=== PATIENT | male | born 1985 | race African-American/Black ===

== ENCOUNTER 2024-05-22 02:38 | Inpatient (IN) | payer MEDICAID ==
[~2024-05-22] VITALS: Ht 182.9 cm; Wt 83.3 kg
[2024-05-22 00:17] VITALS: BP 118/75; PULSE 108; RESP 14; TEMP 98
[2024-05-22] MEDS ORDERED: LORazepam 2 MG TABLET PO PRN (03:00)
[2024-05-22] MEDS ORDERED: ZOLPIDEM TARTRATE 10 MG TABLET PO PRN (03:00)
[2024-05-22] MEDS ORDERED: HALOPERIDOL 5 MG TABLET PO PRN (03:00)
[2024-05-22 10:00] VITALS: BP 120/69; PULSE 66; RESP 16; TEMP 98.1
[2024-05-22] MEDS: NICOTINE 7 MG/24 HOUR PATCH TD SCH (14:30)
[2024-05-22] MEDS ORDERED: PETROLATUM,WHITE 28 GM JELLY TP PRN (16:00)
[2024-05-22] MEDS ORDERED: IBUPROFEN 400 MG TABLET PO PRN (16:00)
[2024-05-22] MEDS ORDERED: NICOTINE 14 MG/24 HOUR PATCH TD PRN (16:00)
[2024-05-22] MEDS ORDERED: MAGNESIUM HYDROXIDE SUSPENSION 30 ML UDCUP PO PRN (16:00)
[2024-05-22] MEDS ORDERED: GuaiFENesin/D-METHORPHAN [SUGAR-FREE] 200-20MG/10 ML SYRUP UDCUP PO PRN (16:00)
[2024-05-22] MEDS ORDERED: ONDANSETRON HCL 4 MG TABLET PO PRN (16:00)
[2024-05-22] MEDS ORDERED: DOCUSATE SODIUM 100 MG CAPSULE PO PRN (16:00)
[2024-05-22] MEDS ORDERED: LOPERAMIDE HCL 2 MG CAPSULE PO PRN (16:00)
[2024-05-22] MEDS ORDERED: MAG HYDROX/ALUMINUM HYD/SIMETH ES 30 ML SUSPENSION UDCUP PO PRN (16:00)
[2024-05-22] MEDS ORDERED: ACETAMINOPHEN 325 MG TABLET PO PRN (16:00)
[2024-05-22] MEDS ORDERED: CloNIDine HCL 0.1 MG TABLET PO PRN (16:00)
[2024-05-22] MEDS ORDERED: ALBUTEROL SULFATE HFA 90 MCG/PUFF 8 GM INHALER IH PRN (16:00)
[2024-05-22 20:28] VITALS: RESP 16
[2024-05-23 08:39] VITALS: BP 135/75; PULSE 67; RESP 17; TEMP 97.7; O2SAT 94
[2024-05-23 08:54] LABS: CHOL/HDL RATIO 3.3 (4.2-7.3); THYROID STIMULATING HORMONE 2.94 uIU/mL (0.36-3.74)
[2024-05-23] MEDS ORDERED: MAG HYDROX/ALUMINUM HYD/SIMETH ES 30 ML SUSPENSION UDCUP PO PRN (09:00)
[2024-05-23] MEDS ORDERED: ALBUTEROL SULFATE HFA 90 MCG/PUFF 8 GM INHALER IH PRN (09:00)
[2024-05-23] MEDS ORDERED: IBUPROFEN 400 MG TABLET PO PRN (09:00)
[2024-05-23] MEDS ORDERED: ACETAMINOPHEN 325 MG TABLET PO PRN (09:00)
[2024-05-23] MEDS ORDERED: LOPERAMIDE HCL 2 MG CAPSULE PO PRN (09:00)
[2024-05-23] MEDS ORDERED: MAGNESIUM HYDROXIDE SUSPENSION 30 ML UDCUP PO PRN (09:00)
[2024-05-23] MEDS ORDERED: CloNIDine HCL 0.1 MG TABLET PO PRN (09:00)
[2024-05-23] MEDS ORDERED: DOCUSATE SODIUM 100 MG CAPSULE PO PRN (09:00)
[2024-05-23] MEDS ORDERED: ONDANSETRON HCL 4 MG TABLET PO PRN (09:00)
[2024-05-23] MEDS ORDERED: PETROLATUM,WHITE 28 GM JELLY TP PRN (09:00)
[2024-05-23] MEDS ORDERED: GuaiFENesin/D-METHORPHAN [SUGAR-FREE] 200-20MG/10 ML SYRUP UDCUP PO PRN (09:00)
[2024-05-23 09:07] VITALS: BP 116/70; PULSE 77; O2SAT 97
[2024-05-23 10:05] VITALS: BP 108/75; PULSE 84; TEMP 97.7; O2SAT 98
[2024-05-23 10:53] LABS: HEMOGLOBIN A1C 5.5 % (3.8-5.6)
[2024-05-23] MEDS: TraZODone HCL 100 MG TABLET PO SCH (18:51)
[2024-05-23] MEDS: QUEtiapine FUMARATE 200 MG TABLET PO SCH (20:28)
[2024-05-23 21:00] VITALS: BP 116/69; PULSE 66; RESP 18; TEMP 98.8; O2SAT 99
[2024-05-24 08:09] VITALS: BP 109/76; PULSE 78; RESP 19; TEMP 97.6; O2SAT 96
[2024-05-24 09:05] LABS: HEMOGLOBIN A1C 5.6 % (3.8-5.6)
[2024-05-24] MEDS: NICOTINE 14 MG/24 HOUR PATCH TD PRN (09:16)
[2024-05-24 09:25] LABS: CHOL/HDL RATIO 3.6 (4.2-7.3); THYROID STIMULATING HORMONE 3.53 uIU/mL (0.36-3.74)
[2024-05-24 21:47] VITALS: BP 104/58; PULSE 60; RESP 16; TEMP 97.5; O2SAT 97
[2024-05-25 08:08] VITALS: BP 103/98; PULSE 83; RESP 17; TEMP 98.2; O2SAT 96
[2024-05-25] MEDS ORDERED: QUET200T30 PO (11:15)
[2024-05-25] MEDS ORDERED: TRAZ-257 PO (11:15)
== END 2024-05-25 12:45 | disposition home or self-care (01) | DRG 750 ==
LOC: B3A 09:53 → B2S 05-23 16:45
PROVIDERS: ADMIT Psychiatry & Neurology Psychiatry; ATTEND Psychiatry & Neurology Psychiatry
PROC: GZHZZZZ Group Psychotherapy (ICD-10-PCS; principal; 2024-05-23)
PROC: GZ56ZZZ Individual Psychotherapy, Supportive (ICD-10-PCS; 2024-05-23)
DX: F25.1 Schizoaffective disorder, depressive type (principal); R45.851 Suicidal ideations; F10.10 Alcohol abuse, uncomplicated; F15.10 Other stimulant abuse, uncomplicated; G47.00 Insomnia, unspecified; F17.200 Nicotine dependence, unspecified, uncomplicated; Y90.9 Presence of alcohol in blood, level not specified; F41.9 Anxiety disorder, unspecified; Z79.899 Other long term (current) drug therapy
CPT/HCPCS: 80061; 83036; 84443

== ENCOUNTER 2024-05-22 07:26 | Emergency (ER) | payer MEDICAID, OTHER ==
[~2024-05-22] VITALS: Ht 183.5 cm; Wt 90.9 kg
[2024-05-22 07:40] VITALS: BP 123/67; PULSE 72; RESP 14; TEMP 97.5
[2024-05-22 08:00] LABS: COVID AG,FIA SOURCE NASAL SWAB
[2024-05-22 08:09] LABS: BASOPHILS % (AUTO) 0.3 % (0.0-2.0); EOSINOPHILS % (AUTO) 0.7 % (1.0-6.0); HEMATOCRIT 44.2 % (41-53); HEMOGLOBIN 14.7 g/dL (13.5-17.5); LYMPHOCYTES # (AUTO) 1.2 K/uL (1.0-4.8); LYMPHOCYTES % (AUTO) 11.6 % (22.0-44.0); MEAN CORPUSCULAR HEMOGLOBIN 31.5 pg (26.0-34.0); MEAN CORPUSCULAR HGB CONC 33.2 G/dL (31.0-37.0); MEAN CORPUSCULAR VOLUME 95 fL (80-100); MONOCYTES # (AUTO) 0.8 K/uL (0.1-1.0); MONOCYTES % (AUTO) 7.5 % (2.0-9.0); NEUTROPHILS # (AUTO) 8.5 K/uL (1.8-7.7); NEUTROPHILS % (AUTO) 79.9 % (40.0-70.0); PLATELET COUNT (AUTO) 212 K/uL (150-450); RED BLOOD CELL COUNT(AUTO) 4.66 MIL/uL (4.50-5.90); RED CELL DISTRIBUTION WIDTH 14.8 % (11.5-14.5); WHITE BLOOD COUNT (AUTO) 10.7 K/uL (4.5-11.0)
[2024-05-22 08:13] LABS: ANION GAP 4 mmol/L (8-16); CALCIUM, TOTAL 7.8 mg/dL (8.8-10.5); CARBON DIOXIDE 31 mmol/L (22-29); CHLORIDE 101 mmol/L (98-107); CREATININE 1.26 mg/dL (0.60-1.30); GLOMERULAR FILTR. RATE CALC > 60 mL/min (>60); GLUCOSE,RANDOM 119 mg/dL (70-110); POTASSIUM 3.4 mmol/L (3.5-5.1); SODIUM SERUM 136 mmol/L (136-145); UREA NITROGEN, BLOOD 10 mg/dL (7-18)
[2024-05-22 08:17] LABS: ALCOHOL, BLOOD (SERUM) < 3 mg/dL (0-10)
[2024-05-22 08:31] LABS: SARS-COV2 (COVID) ANTIGEN,FIA Negative (Negative)
== END 2024-05-22 09:26 ==
LOC: EMS 07:27
DX: Z04.6 Encounter for general psychiatric examination, requested by authority (principal); Z20.822 Contact with and (suspected) exposure to COVID-19
CPT/HCPCS: 99285; 87426; 80048; 85025; 36415; G0480

== ENCOUNTER 2024-05-23 10:40 | Emergency (ER) | payer MEDICAID, OTHER ==
[~2024-05-23] VITALS: Ht 182.9 cm; Wt 90.9 kg
[2024-05-23 15:44] VITALS: BP 109/63; PULSE 62; RESP 18; TEMP 98.2
[2024-05-23] MEDS: ACETAMINOPHEN 500 MG TABLET PO ONE (15:53)
== END 2024-05-23 16:28 ==
LOC: EMS 10:50
DX: S00.83XA Contusion of other part of head, initial encounter (principal); F20.9 Schizophrenia, unspecified; Y04.8XXA Assault by other bodily force, initial encounter; Y93.89 Activity, other specified; Y92.89 Other specified places as the place of occurrence of the external cause; Y99.8 Other external cause status
CPT/HCPCS: 70450; 70486; 99284